=== PATIENT | male | born 1980 | race Caucasian/White ===

== ENCOUNTER 2021-11-22 09:20 | Emergency (ER) | payer SELFPAY ==
[2021-11-22 10:01] VITALS: TEMP 98
--- NOTE | 2021-11-22 10:02 | ED ---
General Adult HPI - General Stated complaint: Covid Test - History of Present Illness Initial comments: 41-year-old male without any significant past medical history presents to the emergency room for a COVID-19 test. Patient is traveling to [place] and [place] get [place] the border without one. Patient denies any symptoms or exposures.Patient has no other complaints at this time including shortness of breath, chest pain, abdominal pain, nausea or vomiting, headache, or visual changes. - Related Data Allergies Allergy/AdvReac Type Severity Reaction Status Date / Time No Known Allergies Allergy Verified 11/22/21 09:59 Review of Systems ROS Statement: Those systems with pertinent positive or pertinent negative responses have been documented in the HPI. ROS Other: All systems not noted in ROS Statement are negative. General Exam General appearance: alert, in no apparent distress Head exam: Present: atraumatic Eye exam: Present: normal appearance, PERRL, EOMI. Absent: scleral icterus, conjunctival injection ENT exam: Present: normal exam, mucous membranes moist Neck exam: Present: normal inspection, full ROM. Absent: tenderness Respiratory exam: Absent: respiratory distress Course Vital Signs 11/22/21 09:59 Temperature 98 F Disposition Clinical Impression: Lab test negative for COVID-19 virus Disposition: HOME SELF-CARE Condition: Good Instructions (If sedation given, give patient instructions): Coronavirus Disease 2019 (COVID-19) Is patient prescribed a controlled substance at d/c from ED?: No Referrals: Pankaj Polanco MD [REFERRING] - 1-2 days Time of Disposition: 10:04
[2021-11-22 11:34] VITALS: BP 131/82; PULSE 74; RESP 18
== END 2021-11-22 11:20 | disposition home or self-care (01) ==
LOC: EC 09:20
DX: Z20.822 Contact with and (suspected) exposure to COVID-19 (principal)
CPT/HCPCS: 87635; 99283